=== PATIENT | female | born 1980 | race Two or more races ===

== ENCOUNTER 2025-04-15 18:26 | Emergency (ER) | payer MEDICAID, OTHER ==
[~2025-04-15] VITALS: Ht 154.9 cm; Wt 64.9 kg
--- NOTE | 2025-04-15 18:49 | ED.PDOC ---
History of Present Illness HPI Comments 44 y/o F presents with c/c of generalized rash and itchiness x4 days. No endorsed recent lifestyle changes, new medications, or further pertinent medical history. She also complains of right ear pain and facial swelling, unprovoked, for 1x day. 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 History All Other Systems: Reviewed and Negative (As per HPI) Physical Exam General Appearance: No Apparent Distress, Normal HEENT: Normal ENT Inspection, Pharynx Normal, TMs Normal, Other (AIRWAY INTACT NO SWELLING NO STRIDOR PATIENT TALKING IN FULL SENTENCES) Neck: Full Range of Motion, Non-Tender, Normal, Normal Inspection Respiratory: Chest Non-Tender, Lungs Clear, No Accessory Muscle Use, No Respiratory Distress, Normal Breath Sounds Cardiovascular: No Edema, No JVD, No Murmur, No Gallop, Normal Peripheral Pulses, Regular Rate/Rhythm Breast Exam: Deferred Gastrointestinal: No Organomegaly, Non Tender, No Pulsatile Mass, Normal Bowel Sounds, Soft Genitalia: Deferred Pelvic: Deferred Rectal: Deferred Extremities: No calf tenderness, Normal capillary refill, Normal inspection, Normal range of motion, Non-tender, No pedal edema Musculoskeletal : Apperance: Normal Neurologic: Alert, matchbook assembler II-XII nml as Tested, No Motor Deficits, Normal Affect, Normal Mood, No Sensory Deficits Cerebellar Function: Normal Reflexes: Normal Skin: Dry, Normal Color, Rash (DIFFUSE URTICARIA ARMS NECK AND CHEST BILATERAL EARS ERYTHEMIC AND EDEMATOUS NO NOTED EXCORIATIONS OR OPEN LESIONS), Warm Lymphatic: No Adenopathy Was a procedure done? Was a procedure done?: No Differential Dx Considerations may include: anaphylaxis, contact dermatitis, cellulitis, angioedema, among others X-Ray, Labs, Meds, VS Vital Signs Date Time Temp Pulse Resp B/P (MAP) Pulse Ox O2 Delivery O2 Flow Rate FiO2 04/15/25 21:24 97.5 97 20 174/106 (128) 100 97.5 04/15/25 21:24 97 20 100 Room Air 04/15/25 18:28 97.8 90 15 148/90 98 97.8 Lab Test 04/15/25 19:42 Range/Units White Blood Count 8.4 4.4-10.8 10^3/uL Red Blood Count 5.45 H 4.0-5.20 10^6/uL Hemoglobin 14.0 12.2-16.2 g/dL Hematocrit 41.5 36.0-46.0 % Mean Corpuscular Volume 76.3 L 80.0-100.0 fL Mean Corpuscular Hemoglobin 25.7 L 28.0-32.0 pg Mean Corpuscular Hemoglobin Concent 33.7 32.0-36.0 g/dL Red Cell Distribution Width 13.1 11.8-14.3 % Platelet Count 197 140-450 10^3/uL Mean Platelet Volume 9.5 6.9-10.8 fL Neutrophils (%) (Auto) 63.9 37.0-80.0 % Lymphocytes (%) (Auto) 25.8 10.0-50.0 % Monocytes (%) (Auto) 6.5 0.0-12.0 % Eosinophils (%) (Auto) 3.5 0.0-7.0 % Basophils (%) (Auto) 0.3 0.0-2.0 % Neutrophils # (Auto) 5.4 1.6-8.6 10 ^3/uL Lymphocytes # (Auto) 2.2 0.4-5.4 10 ^3/uL Monocytes # (Auto) 0.5 0-1.3 10 ^3/uL Eosinophils # (Auto) 0.3 0-0.8 10 ^3/uL Basophils # (Auto) 0 0-0.2 10 ^3/uL Nucleated Red Blood Cells 0.0 % Erythrocyte Sedimentation Rate 10 0-20 mm/hr Sodium Level 138 136-145 mmol/L Potassium Level 3.4 L 3.5-5.1 mmol/L Chloride Level 104 98-107 mmol/L Carbon Dioxide Level 26 20-31 mmol/L Anion Gap 8 5-15 Blood Urea Nitrogen 8 L 9-23 mg/dL Creatinine 0.71 0.550-1.02 mg/dL Glomerular Filtration Rate Calc 107 >90 mL/min BUN/Creatinine Ratio 11.3 10.0-20.0 Serum Glucose 104 74-106 mg/dL Calcium Level 9.5 8.7-10.4 mg/dL Total Bilirubin 0.4 0.2-1.0 mg/dL Aspartate Amino Transferase (AST) 18 13-40 U/L Alanine Aminotransferase (ALT) 9 7-40 U/L Alkaline Phosphatase 39 L 46-116 U/L Total Protein 7.7 5.7-8.2 g/dL Albumin 4.5 3.2-4.8 g/dL Current Medications Medications (Trade) Dose Ordered Sig/Lamin Route Start Time Stop Time Status Last Admin Sodium Chloride 1,000 ml @ 1,000 mls/hr Q1H ONCE IV 04/15/25 19:45 04/15/25 20:44 DC 04/15/25 19:45 Methylprednisolone Sodium Succinate (Solu Medrol) 125 mg ONCE ONCE IV 04/15/25 19:45 04/15/25 19:46 DC 04/15/25 22:05 Famotidine (Pepcid Injection) 20 mg ONCE ONCE IV 04/15/25 19:45 04/15/25 19:46 DC 04/15/25 22:05 Diphenhydramine HCl (Benadryl Injection) 25 mg ONCE ONCE IV 04/15/25 19:45 04/15/25 19:46 DC 04/15/25 22:05 X-Ray, Labs, Meds, VS Comment Patient given Solu-Medrol 125 IV push Pepcid 20 mg IV push and Benadryl 25 mg IV push along with normal saline 1000 mL bolus. Moderate improvement in swelling and ears and urticarial rash patient requesting discharge at this time. We will script trial of Medrol Dosepak and famotidine. Advised to call her PCP 1st thing in the morning schedule follow up. ER return precautions given patient indicates understanding and agrees with discharge plan of care. Time of 1ST Reevaluation: 18:33 Reevaluation 1ST: Unchanged Time of 2ND Reevaluation: 22:08 Reevaluation 2ND: Improved Patient Education/Counseling: Diagnosis, Treatment, Need For Follow Up Family Education/Counseling: No Family Present SEPSIS Sepsis Screen Date sepsis recognized/suspect: Apr 15, 2025 Time Sepsis recognized/suspect: 1829 Recent Procedure: No On Antibiotic Therapy: No Respiratory Rate >20: No Heart Rate >90: No Temp<36 C (96.8 F) or >38.3 C: No SBP <90 or MAP <65 mmHG: No New Acute Mental Status Change: No Is the patient on CPAP, BIPAP,: No Physician Orders Urinalysis (04/15/25 19:33) Vital Signs Date Time Temp Pulse Resp B/P (MAP) Pulse Ox O2 Delivery O2 Flow Rate FiO2 04/15/25 21:24 97.5 97 20 174/106 (128) 100 97.5 04/15/25 21:24 97 20 100 Room Air 04/15/25 18:28 97.8 90 15 148/90 98 97.8 Laboratory Tests Test 04/15/25 19:42 White Blood Count 8.4 10^3/uL (4.4-10.8) Medications Medications Dose Ordered Sig/Lamin Route Start Time Stop Time Status Last Admin Dose Admin Diphenhydramine HCl 25 mg ONCE ONCE IV 04/15/25 19:45 04/15/25 19:46 DC 04/15/25 22:05 Famotidine 20 mg ONCE ONCE IV 04/15/25 19:45 04/15/25 19:46 DC 04/15/25 22:05 Methylprednisolone Sodium Succinate 125 mg ONCE ONCE IV 04/15/25 19:45 04/15/25 19:46 DC 04/15/25 22:05 Sodium Chloride 1,000 ml @ 1,000 mls/hr Q1H ONCE IV 04/15/25 19:45 04/15/25 20:44 DC 04/15/25 19:45 Departure 1 Departure Time of Disposition: 22:06 Impression: Primary Impression: Allergic reaction Qualified Codes: T78.40XA - Allergy, unspecified, initial encounter Disposition: HOME / SELF CARE / HOMELESS Condition: Stable e-Prescriptions Famotidine (Famotidine) 20 Mg Tab 20 MG PO BID for 7 Days, #14 TAB Prov: ELEAZAR ADAM DIRECTOR OF [employer]ESSIONAL SERVICES 04/15/25 Methylprednisolone (Medrol Dosepak) 4 Mg Chris 4 MG PO UD for 6 Days, #21 TAB UAD Prov: ELEAZAR ADAM [employer] 04/15/25 Discharged With: Self Critical Care Note Critical Care Time?: No Stability Stability form required: No Heart Score Heart Score: Heart Score Response (Comments) Value History N/A 0 EKG N/A 0 Age N/A 0 Risk Factors N/A 0 Troponin N/A 0 Total 0 I personally scribed for ER ([email or web address]) on 04/15/25 at 18:49. Electronically submitted by Romeo Flores [email or web address]). ER Apr 15, 2025 18:49 ELEAZAR ADAM [facility] Apr 15, 2025 19:38
[2025-04-15] MEDS: SODIUM CHLORIDE 0.9% 1,000 ML IV ONE (19:45)
[2025-04-15 19:59] LABS: Hemoglobin 14.0 g/dL (12.2-16.2)
[2025-04-15 20:01] LABS: Hematocrit 41.5 % (36.0-46.0); Mean Corpuscular Hemoglobin 25.7 pg (28.0-32.0); Mean Corpuscular Volume 76.3 fL (80.0-100.0); Nucleated Red Blood Cells % 0.0 %
[2025-04-15 20:06] LABS: Albumin 4.5 g/dL (3.2-4.8); Anion Gap 8 (5-15); BUN/Creatinine Ratio 11.3 (10.0-20.0); Calcium 9.5 mg/dL (8.7-10.4); Carbon Dioxide 26 mmol/L (20-31); Chloride 104 mmol/L (98-107); Glucose 104 mg/dL (74-106); Sodium 138 mmol/L (136-145); Total Protein 7.7 g/dL (5.7-8.2)
[2025-04-15 20:07] LABS: Bilirubin, Total 0.4 mg/dL (0.2-1.0)
[2025-04-15 20:08] LABS: Alanine Aminotransferase 9 U/L (7-40); Alkaline Phosphatase 39 U/L (46-116); Blood Urea Nitrogen 8 mg/dL (9-23); Potassium 3.4 mmol/L (3.5-5.1)
[2025-04-15 21:24] VITALS: BP 174/106; PULSE 97; RESP 20; TEMP 97.5; O2SAT 100
[2025-04-15] MEDS: methylPREDNISolone SOD SUCC 125 MG/2 ML VL IV ONE (22:05)
[2025-04-15] MEDS: diphenhydrAMINE HCL 50 MG/1 ML VL IV ONE (22:05)
[2025-04-15] MEDS: FAMOTIDINE (10MG/ML) 2ML VL IV ONE (22:05)
[2025-04-15] MEDS ORDERED: FAMO-12 PO (22:07)
[2025-04-15] MEDS ORDERED: METH4PAK PO (22:07)
== END 2025-04-15 22:09 | disposition home or self-care (01) ==
LOC: ER 18:34
DX: L50.9 Urticaria, unspecified (principal); T78.40XA Allergy, unspecified, initial encounter; X58.XXXA Exposure to other specified factors, initial encounter
CPT/HCPCS: 36415; 80053; 85025; 85652; 96361; 96374; 96375; 99284; J1200; J2919; J3490; J7030

== ENCOUNTER 2025-04-18 20:05 | Emergency (ER) | payer OTHER ==
[~2025-04-18] VITALS: Ht 160 cm; Wt 63.6 kg
[~2025-04-18 20:05] MED LIST: FAMO-12 PO; METH4PAK PO
[2025-04-18 20:29] VITALS: BP 130/86; PULSE 86; RESP 100; TEMP 99.7; O2SAT 99
--- NOTE | 2025-04-18 22:06 | ED.PDOC ---
HPI Allergic reaction HPI Comments 44-year-old female presents to ER with complaints of rash x 1.5 weeks. Patient reports that she has been experiencing a diffuse red itchy rash to bilateral arms, bilateral legs and face x 1.5 weeks. Patient reports that she was seen and discharged in ER here for her symptoms three days ago and notes that her symptoms have since gotten worse prompting her to come to ER for further evaluation. Patient reports that she has been taking her prescribed steroids and famotidine without relief. Patient presents to ER ambulatory on arrival, with steady gait, in mild distress with a fine erythematous maculopapular rash noted to bilateral upper/lower extremities and neck/face. Denies fever, body ac hes, chills, known allergies/known triggers of rash, shortness of breath, chest pain or any further symptoms/complaints Chief Complaint: Rash Time Seen by MD: 20:16 Primary Care Provider: UNKNOWN Reviewed Notes: Nurses Notes, Medications, Allergies Allergies: Coded Allergies: NO KNOWN ALLERGIES (Unverified , 04/15/25) Home Meds Active Scripts Famotidine (Famotidine) 20 Mg Tab, 20 MG PO BID for 7 Days, #14 TAB Prov:ELEAZAR ADAM [facility] 04/15/25 Methylprednisolone (Medrol Dosepak) 4 Mg Chris, 4 MG PO UD for 6 Days, #21 TAB UAD Prov:ELEAZAR ADAM [facility] 04/15/25 Information Source: Patient Mode of Arrival: Ambulatory Past Medical History PAST MEDICAL HISTORY: Denies Surgical History: Denies all surgeries 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 G History Family History Family History: Unknown Social History Smoker: Non-Smoker Alcohol: Denies ETOH Use Drugs: Denies Drug Use Lives In: Home Constitutional: denies: chills, diaphoresis, fatigue, fever, malaise, sweats, weakness, others EENTM: reports: others (As stated in HPI) Respiratory: denies: cough, hemoptysis, orthopnea, SOB at rest, shortness of breath, SOB with excertion, stridor, wheezing, others Cardiovascular: denies: chest pain, dizzy spells, diaphoresis, Dyspnea on exertion, edema, irregular heart beat, left arm pain, lightheadedness, palpitations, PND, syncope, others Genitourinary: denies: abnormal vagina bleeding, burning, dyspareunia, dysuria, flank pain, frequency, hematuria, incontinence, pain, , vagina discharge, urgency, others Neurological: denies: dizziness, fainting, headache, left sided numbness, left sided weakness, numbness, paresthesia, pre-existing deficit, right sided numbness, right sided weakness, seizure, speech problems, tingling, tremors, we akness, others Musculoskeletal: denies: back pain, gout, joint pain, joint swelling, muscle pain, muscle stiffness, neck pain, others Integumetry: reports: others (As stated in HPI) Allergic/Immunocompromised: reports: others (As stated in HPI) Hematologic/Lymphatic: denies: anemia, blood clots, easy bleeding, easy bruising, swollen glands, others Endocrine: denies: excessive hunger, excessive sweating, excessive thirst, excessive urination, flushing, intolerance to cold, intolerance to heat, unexplained weight gain, unexplained weight loss, others Psychiatric: denies: anxiety, bipolar disorder, depression, hopeless, panic disorder, schizophrenia, sleepless, suicidal, others Physical Exam General Appearance: Mild Distress HEENT: Normal ENT Inspection, PERRL/EOMI, Pharynx Normal, TMs Normal Neck: Full Range of Motion, Non-Tender, Normal Respiratory: Chest Non-Tender, Lungs Clear, No Accessory Muscle Use, No Respiratory Distress, Normal Breath Sounds Cardiovascular: No Murmur, No Gallop, Regular Rate/Rhythm Breast Exam: Deferred Gastrointestinal: Non Tender, No Pulsatile Mass, Soft Genitalia: Deferred Pelvic: Deferred Rectal: Deferred Extremities: Normal capillary refill, Normal range of motion Neurologic: Alert, No Motor Deficits, Normal Affect, Normal Mood, No Sensory Deficits Cerebellar Function: Normal Reflexes: Normal Skin: Dry, Warm, Other (Fine erythematous maculopapular rash noted to bilateral upper/lower extremities and neck/face) Lymphatic: No Adenopathy Was a procedure done? Was a procedure done?: No Sedation Sedation?: No Differential diagnosis (all) Differential Diagnosis: Anaphylaxis, Angioedema, Drug Reaction, Hypotension X-Ray, Labs, Meds, VS Vital Signs Date Time Temp Pulse Resp B/P (MAP) Pulse Ox O2 Delivery O2 Flow Rate FiO2 04/18/25 20:29 99.7 86 100 130/86 99 99.7 04/18/25 20:21 Room Air Lab Test 04/18/25 23:00 04/18/25 22:09 Range/Units Lactic Acid Level 1.0 0.4-2.0 mmol/L White Blood Count 15.3 #H 4.4-10.8 10^3/uL Red Blood Count 6.04 H 4.0-5.20 10^6/uL Hemoglobin 15.5 12.2-16.2 g/dL Hematocrit 46.4 #H 36.0-46.0 % Mean Corpuscular Volume 76.9 L 80.0-100.0 fL Mean Corpuscular Hemoglobin 25.6 L 28.0-32.0 pg Mean Corpuscular Hemoglobin Concent 33.3 32.0-36.0 g/dL Red Cell Distribution Width 13.4 11.8-14.3 % Platelet Count 230 140-450 10^3/uL Mean Platelet Volume 9.5 6.9-10.8 fL Neutrophils (%) (Auto) 71.5 37.0-80.0 % Lymphocytes (%) (Auto) 17.1 10.0-50.0 % Monocytes (%) (Auto) 6.3 0.0-12.0 % Eosinophils (%) (Auto) 4.6 0.0-7.0 % Basophils (%) (Auto) 0.5 0.0-2.0 % Neutrophils # (Auto) 11.0 H 1.6-8.6 10 ^3/uL Lymphocytes # (Auto) 2.6 0.4-5.4 10 ^3/uL Monocytes # (Auto) 1.0 0-1.3 10 ^3/uL Eosinophils # (Auto) 0.7 0-0.8 10 ^3/uL Basophils # (Auto) 0.1 0-0.2 10 ^3/uL Nucleated Red Blood Cells 0.3 % Erythrocyte Sedimentation Rate 3 0-20 mm/hr Sodium Level 136 136-145 mmol/L Potassium Level 3.7 3.5-5.1 mmol/L Chloride Level 103 98-107 mmol/L Carbon Dioxide Level 25 20-31 mmol/L Anion Gap 8 5-15 Blood Urea Nitrogen 6 L 9-23 mg/dL Creatinine 0.83 0.550-1.02 mg/dL Glomerular Filtration Rate Calc 89 >90 mL/min BUN/Creatinine Ratio 7.2 L 10.0-20.0 Serum Glucose 87 74-106 mg/dL Calcium Level 9.6 8.7-10.4 mg/dL Total Bilirubin 0.4 0.2-1.0 mg/dL Aspartate Amino Transferase (AST) 14 13-40 U/L Alanine Aminotransferase (ALT) 11 7-40 U/L Alkaline Phosphatase 43 L 46-116 U/L Total Protein 8.3 H 5.7-8.2 g/dL Albumin 4.9 H 3.2-4.8 g/dL Current Medications Medications (Trade) Dose Ordered Sig/Lamin Route Start Time Stop Time Status Last Admin Methylprednisolone Sodium Succinate (Solu Medrol) 125 mg ONCE ONCE IV 04/18/25 22:00 04/18/25 22:01 DC 04/18/25 22:39 Famotidine (Pepcid Injection) 20 mg ONCE ONCE IV 04/18/25 22:00 04/18/25 22:01 DC 04/18/25 22:39 Diphenhydramine HCl (Benadryl Injection) 25 mg ONCE ONCE IM 04/18/25 22:00 04/18/25 22:01 DC 04/18/25 22:38 CBC reviewed- + leukocytosis, + neutrophilia CMP reviewed without any significant abnormalities ESR ordered Lactic acid reviewed - normal Blood cultures ordered Urinalysis ordered Hep-Lock IV ordered Solu-Medrol 125 mg IV ordered Benadryl 25 mg IV ordered Famotidine 25 mg IV ordered Rocephin 1 g IV ordered Previous chart visit reviewed Patient admitted to hospitalist for recurrent urticaria and continued need for IV treatment/workup for recurrent urticaria Time of 1ST Reevaluation: 21:44 Reevaluation 1ST: N/A Patient Education/Counseling: Diagnosis, Treatment, Prognosis, Need For Follow Up Family Education/Counseling: No Family Present SEPSIS Sepsis Screen Date sepsis recognized/suspect: Apr 18, 2025 Time Sepsis recognized/suspect: 2032 Recent Procedure: No On Antibiotic Therapy: No Respiratory Rate >20: No Heart Rate >90: No Temp<36 C (96.8 F) or >38.3 C: No SBP <90 or MAP <65 mmHG: No New Acute Mental Status Change: No Is the patient on CPAP, BIPAP,: No Physician Orders Urinalysis (04/18/25 21:52) Heplock Iv (04/18/25 ) Blood Culture (04/18/25 22:54) Vital Signs Date Time Temp Pulse Resp B/P (MAP) Pulse Ox O2 Delivery O2 Flow Rate FiO2 04/18/25 20:29 99.7 86 100 130/86 99 99.7 04/18/25 20:21 Room Air Laboratory Tests Test 04/18/25 22:09 04/18/25 23:00 White Blood Count 15.3 10^3/uL (4.4-10.8) #H Lactic Acid Level 1.0 mmol/L (0.4-2.0) Medications Medications Dose Ordered Sig/Lamin Route Start Time Stop Time Status Last Admin Dose Admin Diphenhydramine HCl 25 mg ONCE ONCE IM 04/18/25 22:00 04/18/25 22:01 DC 04/18/25 22:38 Famotidine 20 mg ONCE ONCE IV 04/18/25 22:00 04/18/25 22:01 DC 04/18/25 22:39 Methylprednisolone Sodium Succinate 125 mg ONCE ONCE IV 04/18/25 22:00 04/18/25 22:01 DC 04/18/25 22:39 Departure 1 Departure Time of Disposition: 22:03 Impression: Primary Impression: Recurrent urticaria Additional Impression: Leukocytosis Qualified Codes: D72.829 - Elevated white blood cell count, unspecified Disposition: ADMITTED INPATIENT Condition: Stable Critical Care Note Critical Care Time?: No Stability Stability form required: No Heart Score Heart Score: Heart Score Response (Comments) Value History N/A 0 EKG N/A 0 Age N/A 0 Risk Factors N/A 0 Troponin N/A 0 Total 0 ZULEYKA FOWLER Apr 18, 2025 22:06
[2025-04-18 22:24] LABS: Hematocrit 46.4 % (36.0-46.0); Hemoglobin 15.5 g/dL (12.2-16.2); Mean Corpuscular Hemoglobin 25.6 pg (28.0-32.0); Mean Corpuscular Volume 76.9 fL (80.0-100.0); Nucleated Red Blood Cells % 0.3 %
[2025-04-18] MEDS: diphenhydrAMINE HCL 50 MG/1 ML VL IM ONE (22:38)
[2025-04-18 22:39] LABS: Alanine Aminotransferase 11 U/L (7-40); Anion Gap 8 (5-15); BUN/Creatinine Ratio 7.2 (10.0-20.0); Bilirubin, Total 0.4 mg/dL (0.2-1.0); Calcium 9.6 mg/dL (8.7-10.4); Carbon Dioxide 25 mmol/L (20-31); Chloride 103 mmol/L (98-107); Glucose 87 mg/dL (74-106); Potassium 3.7 mmol/L (3.5-5.1); Sodium 136 mmol/L (136-145)
[2025-04-18] MEDS: methylPREDNISolone SOD SUCC 125 MG/2 ML VL IV ONE (22:39)
[2025-04-18] MEDS: FAMOTIDINE (10MG/ML) 2ML VL IV ONE (22:39)
[2025-04-18 22:40] LABS: Albumin 4.9 g/dL (3.2-4.8); Alkaline Phosphatase 43 U/L (46-116); Blood Urea Nitrogen 6 mg/dL (9-23); Total Protein 8.3 g/dL (5.7-8.2)
--- NOTE | 2025-04-18 23:50 | DVHHPRES ---
History of Present Illness Resident Creating Document: ARIADNE HART RESIDENT History of Present Illness Patient is a -year-old male with past medical history of presented to [facility] ED with complaint of Review of Systems Review of Systems Eyes: No Pain, No Vision change, No Conjunctivae inflammation, No Eyelid inflammation, No Other, No Redness ENT: No Ear pain, No Ear discharge, No Nose pain, No Nose discharge, No Nose congestion, No Mouth pain, No Mouth swelling, No Throat pain, No Throat swelling, No Other Cardiovascular: No Chest Pain, No Palpitations, No Orthopnea, No Paroxysmal No Dyspnea, No Edema, No Lt Headedness, No Other Respiratory: No Cough, No Dry, No Shortness of breath, No SOB with exertion, No Wheezing, No Hemoptysis, No Pleuritic Pain, No Sputum, No Other Gastrointestinal: No Nausea, No Vomiting, No Abdominal Pain, No Diarrhea, No Constipation, No Melena, No Hematochezia, No Other Genitourinary: No Dysuria, No Frequency, No Incontinence, No Hematuria, No Retention, No Other Musculoskeletal: No other, No neck pain, No shoulder pain, No arm pain, No back pain, No hand pain, No leg pain, No foot pain Skin: No Rash, No Lesions, No Jaundice, No Bruising, No Other Allergies: Coded Allergies: NO KNOWN ALLERGIES (Unverified , 04/15/25) Exam Vital Signs Vital Signs Date Time Temp Pulse Resp B/P (MAP) Pulse Ox O2 Delivery O2 Flow Rate FiO2 04/18/25 20:29 99.7 86 100 130/86 99 99.7 Exam General Appearance: Cooperative. Well developed. Well nourished. NAD Head Exam: Normal inspection Neck Exam: Normal inspection. Non-tender. Normal alignment Pulmonary/Respiratory: Chest non-tender. Clear bilateral breath sounds, no crackles, no wheezing. Cardiovascular/Chest: Regular rate and rhythm. No murmurs. No JVD. Peripheral Pulses: 2+ Radial (R). 2+ Radial (L). 2+ Pedal (R). 2+ Pedal (L) Abdominal Exam: Normal bowel sounds. Soft. normal abdomen, no visible veins, Nontender. No hepatospenomegaly. No masses Ankle Exam: Negative ankle edema Lower extremities: Negative lower extremity edema Neuro/Mental Status: A&O x4. Coherent. Thoughts/Psych: Normal thought pattern. Appropriate mood and affect. Good judgement and insight Skin Exam: Normal inspection. Normal color. Warm. Dry Labs/Xrays Labs Test 04/18/25 22:09 Range/Units White Blood Count 15.3 #H 4.4-10.8 10^3/uL Red Blood Count 6.04 H 4.0-5.20 10^6/uL Hemoglobin 15.5 12.2-16.2 g/dL Hematocrit 46.4 #H 36.0-46.0 % Mean Corpuscular Volume 76.9 L 80.0-100.0 fL Mean Corpuscular Hemoglobin 25.6 L 28.0-32.0 pg Mean Corpuscular Hemoglobin Concent 33.3 32.0-36.0 g/dL Red Cell Distribution Width 13.4 11.8-14.3 % Platelet Count 230 140-450 10^3/uL Mean Platelet Volume 9.5 6.9-10.8 fL Neutrophils (%) (Auto) 71.5 37.0-80.0 % Lymphocytes (%) (Auto) 17.1 10.0-50.0 % Monocytes (%) (Auto) 6.3 0.0-12.0 % Eosinophils (%) (Auto) 4.6 0.0-7.0 % Basophils (%) (Auto) 0.5 0.0-2.0 % Neutrophils # (Auto) 11.0 H 1.6-8.6 10 ^3/uL Lymphocytes # (Auto) 2.6 0.4-5.4 10 ^3/uL Monocytes # (Auto) 1.0 0-1.3 10 ^3/uL Eosinophils # (Auto) 0.7 0-0.8 10 ^3/uL Basophils # (Auto) 0.1 0-0.2 10 ^3/uL Nucleated Red Blood Cells 0.3 % Erythrocyte Sedimentation Rate 3 0-20 mm/hr Sodium Level 136 136-145 mmol/L Potassium Level 3.7 3.5-5.1 mmol/L Chloride Level 103 98-107 mmol/L Carbon Dioxide Level 25 20-31 mmol/L Anion Gap 8 5-15 Blood Urea Nitrogen 6 L 9-23 mg/dL Creatinine 0.83 0.550-1.02 mg/dL Glomerular Filtration Rate Calc 89 >90 mL/min BUN/Creatinine Ratio 7.2 L 10.0-20.0 Serum Glucose 87 74-106 mg/dL Calcium Level 9.6 8.7-10.4 mg/dL Total Bilirubin 0.4 0.2-1.0 mg/dL Aspartate Amino Transferase (AST) 14 13-40 U/L Alanine Aminotransferase (ALT) 11 7-40 U/L Alkaline Phosphatase 43 L 46-116 U/L Total Protein 8.3 H 5.7-8.2 g/dL Albumin 4.9 H 3.2-4.8 g/dL SEPSIS Sepsis Screen Date sepsis recognized/suspect: Apr 18, 2025 Time Sepsis recognized/suspect: 2032 Recent Procedure: No On Antibiotic Therapy: No Respiratory Rate >20: No Heart Rate >90: No Temp<36 C (96.8 F) or >38.3 C: No SBP <90 or MAP <65 mmHG: No New Acute Mental Status Change: No Is the patient on CPAP, BIPAP,: No Physician Orders Urinalysis (04/18/25 21:52) Heplock Iv (04/18/25 ) Lactic Acid W/ Reflex Order (04/18/25 22:54) Blood Culture (04/18/25 22:54) Admit (04/18/25 23:47) Allergies (04/18/25 23:47) Code Status (04/18/25 23:47) Stat Ekg For Chest Pain (04/18/25 23:47) Notify Md Of Changes From Base (04/18/25 23:47) Scheduler Maintenance For 24 Hours (04/18/25 23:47) Emergency Dysrhythmia Protocol (04/18/25 23:47) Rhythm Strips Once Every Shift (04/18/25 23:47) Vital Signs Date Time Temp Pulse Resp B/P (MAP) Pulse Ox O2 Delivery O2 Flow Rate FiO2 04/18/25 20:29 99.7 86 100 130/86 99 99.7 Laboratory Tests Test 04/18/25 22:09 White Blood Count 15.3 10^3/uL (4.4-10.8) #H Medications Medications Dose Ordered Sig/Lamin Route Start Time Stop Time Status Last Admin Dose Admin Diphenhydramine HCl 25 mg ONCE ONCE IM 04/18/25 22:00 04/18/25 22:01 DC 04/18/25 22:38 25 MG Famotidine 20 mg ONCE ONCE IV 04/18/25 22:00 04/18/25 22:01 DC 04/18/25 22:39 20 MG Methylprednisolone Sodium Succinate 125 mg ONCE ONCE IV 04/18/25 22:00 04/18/25 22:01 DC 04/18/25 22:39 125 MG Assessment/Plan Assessment/Plan Sepsis Diet: PUD prophylaxis: protonix 40mg DVT prophylaxis: Lovenox 40mg Goals of care: Full code, discussed for >30 minutes on 04/18/25 Plan discussed with patient Plan discussed with Dr. Ramírez My Orders Orders - ARIADNE HART Procedure Category Date Status Time Admit ADMIT 04/18/25 Verified 23:47 Allergies [facility] 04/18/25 Verified 23:47 Code Status CODE 04/18/25 Verified 23:47 Stat Ekg For Chest [facility] 04/18/25 Verified Pain 23:47 Notify Md Of Changes [facility] 04/18/25 Verified From Base 23:47 Scheduler Maintenance For [facility] 04/18/25 Verified 24 Hours 23:47 Emergency Dysrhythmia [facility] 04/18/25 Verified Protocol 23:47 Rhythm Strips Once [facility] 04/18/25 Verified Every Shift 23:47 Date of Service: Apr 18, 2025 Billing Provider: SANTOS RAMÍREZ MD Common Visit Codes: [id number] INP/OBS CARE (HIGH) Secondary Visit Codes: [id number] CARE PLAN 30 MINUTES ARIADNE HART Apr 18, 2025 23:50
== END 2025-04-19 00:46 | disposition left against medical advice (07) ==
LOC: ER 20:05 → UNDOADMIN 23:47 → OVERFLOW 23:47 → ER 04-19 00:46
DX: L50.9 Urticaria, unspecified (principal); D72.829 Elevated white blood cell count, unspecified
CPT/HCPCS: 36415; 80053; 83605; 85025; 85652; 87040; 96372; 96374; 96375; 99284; J1200; J2919; J3490

== ENCOUNTER 2025-04-21 10:00 | Inpatient (IN) | payer OTHER ==
[~2025-04-21] VITALS: Ht 154.9 cm; Wt 60.2 kg
[2025-04-21] MEDS: methylPREDNISolone SOD SUCC 125 MG/2 ML VL IV ONE (13:17)
[2025-04-21] MEDS: FAMOTIDINE (10MG/ML) 2ML VL IV ONE (13:18)
[2025-04-21] MEDS: diphenhydrAMINE HCL 50 MG/1 ML VL IV ONE (13:18)
[2025-04-21] MEDS: SODIUM CHLORIDE 0.9% 1,000 ML IV ONE (13:21)
[2025-04-21 13:51] LABS: Hemoglobin 15.9 g/dL (12.2-16.2)
[2025-04-21 13:55] LABS: Chloride 101 mmol/L (98-107); Hematocrit 47.4 % (36.0-46.0); Mean Corpuscular Hemoglobin 25.5 pg (28.0-32.0); Mean Corpuscular Volume 76.3 fL (80.0-100.0); Nucleated Red Blood Cells % 0.1 %; Sodium 138 mmol/L (136-145)
[2025-04-21 13:56] LABS: Anion Gap 12 (5-15); Carbon Dioxide 25 mmol/L (20-31); Potassium 3.4 mmol/L (3.5-5.1)
[2025-04-21 13:57] LABS: Calcium 9.9 mg/dL (8.7-10.4)
[2025-04-21 14:01] LABS: BUN/Creatinine Ratio 9.8 (10.0-20.0); Glucose 92 mg/dL (74-106)
[2025-04-21 14:02] LABS: Blood Urea Nitrogen 8 mg/dL (9-23)
--- NOTE | 2025-04-21 14:10 | ED.PDOC ---
HPI Allergic reaction HPI Comments 44-year-old female presents with chief complaint of generalized rash, with associated itchiness. Patient reports on returns to the ED for worsening symptoms falling previous ED visit for same complaint. Patient reports on being treated, during last ED visit, with IV steroids and was discharged with prescription medications. No known history of allergies. She denies having any throat swelling, shortness a breath, further acute symptoms. Chief Complaint: Rash Time Seen by MD: 12:30 Primary Care Provider: UNKNOWN Reviewed Notes: Nurses Notes, Medications, Allergies Allergies: Coded Allergies: NO KNOWN ALLERGIES (Unverified , 04/15/25) Home Meds Active Scripts Famotidine (Famotidine) 20 Mg Tab, 20 MG PO BID for 7 Days, #14 TAB Prov:ELEAZAR ADAM [facility] 04/15/25 Methylprednisolone (Medrol Dosepak) 4 Mg Chris, 4 MG PO UD for 6 Days, #21 TAB UAD Prov:KIAELEAZAR Weathers [facility] 04/15/25 Information Source: Patient Mode of Arrival: Ambulatory Severity: Moderate Rash: Moderate Past Medical History PAST MEDICAL HISTORY: Denies Surgical History: Denies all surgeries COMBER SETTER History: No Pertinent COMBER SETTER History Family History Family History: Unknown Social History Smoker: Non-Smoker Alcohol: Denies ETOH Use Drugs: Denies Drug Use Lives In: Home All Other Systems: Reviewed and Negative (Comprehensive review of systems are negative unless otherwise stated in HPI) Physical Exam General Appearance: No Apparent Distress, Normal HEENT: Normal ENT Inspection, Pharynx Normal, TMs Normal Neck: Full Range of Motion, Non-Tender, Normal, Normal Inspection Respiratory: Chest Non-Tender, Lungs Clear, No Accessory Muscle Use, No Respiratory Distress, Normal Breath Sounds Cardiovascular: No Edema, No JVD, No Murmur, No Gallop, Normal Peripheral Pulses, Regular Rate/Rhythm Breast Exam: Deferred Gastrointestinal: No Organomegaly, Non Tender, No Pulsatile Mass, Normal Bowel Sounds, Soft Genitalia: Deferred Pelvic: Deferred Rectal: Deferred Extremities: No calf tenderness, Normal capillary refill, Normal inspection, Normal range of motion, Non-tender, No pedal edema Musculoskeletal : Apperance: Normal Neurologic: Alert, hogshead roller II-XII nml as Tested, No Motor Deficits, Normal Affect, Normal Mood, No Sensory Deficits Cerebellar Function: Normal Reflexes: Normal Skin: Dry, Normal Color, Rash (Diffusely urticaria), Warm Lymphatic: No Adenopathy Was a procedure done? Was a procedure done?: No Differential diagnosis (all) Differential Diagnosis: Anaphylaxis, Angioedema, Contact Dermatitis, Drug Reaction, Urticaria X-Ray, Labs, Meds, VS Vital Signs Date Time Temp Pulse Resp B/P (MAP) Pulse Ox O2 Delivery O2 Flow Rate FiO2 04/21/25 10:04 98.0 94 18 143/98 98 98.0 Lab Test 04/21/25 13:26 Range/Units White Blood Count 19.0 H 4.4-10.8 10^3/uL Red Blood Count 6.21 H 4.0-5.20 10^6/uL Hemoglobin 15.9 12.2-16.2 g/dL Hematocrit 47.4 H 36.0-46.0 % Mean Corpuscular Volume 76.3 L 80.0-100.0 fL Mean Corpuscular Hemoglobin 25.5 L 28.0-32.0 pg Mean Corpuscular Hemoglobin Concent 33.4 32.0-36.0 g/dL Red Cell Distribution Width 13.2 11.8-14.3 % Platelet Count 293 140-450 10^3/uL Mean Platelet Volume 9.1 6.9-10.8 fL Neutrophils (%) (Auto) 67.5 37.0-80.0 % Lymphocytes (%) (Auto) 21.1 10.0-50.0 % Monocytes (%) (Auto) 6.5 0.0-12.0 % Eosinophils (%) (Auto) 4.6 0.0-7.0 % Basophils (%) (Auto) 0.3 0.0-2.0 % Neutrophils # (Auto) 12.8 H 1.6-8.6 10 ^3/uL Lymphocytes # (Auto) 4.0 0.4-5.4 10 ^3/uL Monocytes # (Auto) 1.2 0-1.3 10 ^3/uL Eosinophils # (Auto) 0.9 H 0-0.8 10 ^3/uL Basophils # (Auto) 0.1 0-0.2 10 ^3/uL Nucleated Red Blood Cells 0.1 % Sodium Level 138 136-145 mmol/L Potassium Level 3.4 L 3.5-5.1 mmol/L Chloride Level 101 98-107 mmol/L Carbon Dioxide Level 25 20-31 mmol/L Anion Gap 12 5-15 Blood Urea Nitrogen 8 L 9-23 mg/dL Creatinine 0.82 0.550-1.02 mg/dL Glomerular Filtration Rate Calc 90 >90 mL/min BUN/Creatinine Ratio 9.8 L 10.0-20.0 Serum Glucose 92 74-106 mg/dL Calcium Level 9.9 8.7-10.4 mg/dL Current Medications Medications (Trade) Dose Ordered Sig/Lamin Route Start Time Stop Time Status Last Admin Sodium Chloride 1,000 ml @ 1,000 mls/hr Q1H ONCE IV 04/21/25 12:45 04/21/25 13:44 DC 04/21/25 13:21 Methylprednisolone Sodium Succinate (Solu Medrol) 62.5 mg ONCE ONCE IV 04/21/25 12:45 04/21/25 12:49 DC 04/21/25 13:17 Diphenhydramine HCl (Benadryl Injection) 25 mg ONCE ONCE IV 04/21/25 12:45 04/21/25 12:49 DC 04/21/25 13:18 Famotidine (Pepcid Injection) 20 mg ONCE ONCE IV 04/21/25 12:45 04/21/25 12:49 DC 04/21/25 13:18 Time of 1ST Reevaluation: 13:00 Reevaluation 1ST: Unchanged Patient Education/Counseling: Diagnosis, Treatment, Other (Need for hospital admission) Family Education/Counseling: No Family Present Additional Information Additional historians: None Previous medical visits reviewed: None Additional imaging reviewed: None Labs ordered: CBC, BMP, UA, urine test SEPSIS Sepsis Screen Date sepsis recognized/suspect: Apr 21, 2025 Time Sepsis recognized/suspect: 1008 Recent Procedure: No On Antibiotic Therapy: No Respiratory Rate >20: No Heart Rate >90: No Temp<36 C (96.8 F) or >38.3 C: No SBP <90 or MAP <65 mmHG: No New Acute Mental Status Change: No Is the patient on CPAP, BIPAP,: No Physician Orders Urinalysis (04/21/25 12:40) Test, Urine (04/21/25 12:40) Vital Signs Date Time Temp Pulse Resp B/P (MAP) Pulse Ox O2 Delivery O2 Flow Rate FiO2 04/21/25 10:04 98.0 94 18 143/98 98 98.0 Laboratory Tests Test 04/21/25 13:26 White Blood Count 19.0 10^3/uL (4.4-10.8) H Medications Medications Dose Ordered Sig/Lamin Route Start Time Stop Time Status Last Admin Dose Admin Diphenhydramine HCl 25 mg ONCE ONCE IV 04/21/25 12:45 04/21/25 12:49 DC 04/21/25 13:18 Famotidine 20 mg ONCE ONCE IV 04/21/25 12:45 04/21/25 12:49 DC 04/21/25 13:18 Methylprednisolone Sodium Succinate 62.5 mg ONCE ONCE IV 04/21/25 12:45 04/21/25 12:49 DC 04/21/25 13:17 Sodium Chloride 1,000 ml @ 1,000 mls/hr Q1H ONCE IV 04/21/25 12:45 04/21/25 13:44 DC 04/21/25 13:21 Departure 1 Departure Time of Disposition: 14:25 (Patient with worsening allergic reaction vs possible cellulitis. Given multiple presentations with worsening results will admit to the hospital for further workup and expert consultation.) Impression: Primary Impression: Recurrent urticaria Additional Impression: Generalized weakness Disposition: ADMITTED INPATIENT Admit to: Tele Condition: Guarded Critical Care Note Critical Care Time?: No Stability Stability form required: No Heart Score Heart Score: Heart Score Response (Comments) Value History N/A 0 EKG N/A 0 Age N/A 0 Risk Factors N/A 0 Troponin N/A 0 Total 0 I personally scribed for AURY JOY MD ([email or web address]) on 04/21/25 at 14:10. Electronically submitted by Romeo Flores [email or web address]). AURY JOY MD Apr 21, 2025 14:10
[2025-04-21 22:57] LABS: Urine Protein, UAD Negative (Negative)
[2025-04-22] VITALS (7 sets, daily range): BP systolic 104–147; BP diastolic 60–94; PULSE 77–103; RESP 17–20; TEMP 97.9–98.7; O2SAT 96–100
--- NOTE | 2025-04-22 01:01 | DVHHPRES ---
History of Present Illness Resident Creating Document: JUVENTINO SHEPHERD RESIDENT Reason for Visit: progressive generalized pruritic rash with facial swelling History of Present Illness Patient is a 44-year-old female who presents with a one-week history of worsening generalized pruritic rash and facial swelling. * Onset/Timeline * 04/15/2025: First-ever episode of facial swelling, redness, and pruritic rash. Evaluated in the ED, treated (reported IV steroids, antihistamines), and discharged. * 04/18/2025: Returned to the ED with worsening diffuse red, itchy rash involving bilateral legs and face for ~1.5 weeks total; diagnosed as recurrent urticaria/allergic reaction, treated with IV steroids and discharged on: * Methylprednisolone 4 mg pack (Medrol Dose Pack) 6-day taper * Famotidine 20 mg PO BID * 04/21/2025 (today): Returns again with persistent and worsening rash and itching, now involving face, neck, bilateral upper and lower extremities up to thighs. She reports inability to sleep due to severe itching and distress. * Character of Rash * Initially localized to face with swelling and redness. * Now generalized maculopapular, erythematous rash on bilateral dorsal arms, forearms, neck, thighs, and face. * Sparing of palms and (per exam) no mucosal erosions. * Portions of rash appear purpuric/petechial on forearms, with diffuse erythema and swelling elsewhere. * Describes burning and intense itching partially responsive then recurrent after medications. * Response to Prior Treatment * Received IV steroids and Benadryl in ED on prior visits; only transient minimal improvement in redness, with ongoing and worsening pruritus. * Started Medrol Dose Pack and famotidine at home but stopped briefly when she saw skin on her wrist become very red; symptoms worsened with discontinuation. * Currently feels the rash is spreading and not improving, prompting ED return. * Associated Symptoms * Denies fever, chills, body aches, joint pains, chest pain, shortness of breath, cough, wheezing, abdominal pain, nausea, vomiting, diarrhea, lightheadedness, or syncope. * Reports facial swelling and burning, but no tongue swelling, no sensation of throat closing, and no respiratory distress. * No GI cramping or systemic symptoms suggestive of anaphylaxis or serum sickness at this time. * Exposures / Triggers * Denies any new foods, medications (other than ED prescriptions), detergen ts, soaps, cosmetics, or pets. * Denies insect bite, sting, recent outdoor exposure, travel outside the [place] or occupational chemical/dust exposure. * No recent vaccinations within last 10 days. * No prior history of similar rashes. * Past Episodes / History * This is the first lifetime episode of such rash and swelling. * No known history of urticaria, eczema, psoriasis, autoimmune disease, or thyroid disease. * Patient Understanding & Counseling * Patient is anxious and uncomfortable due to rash and itching. * I explained that our primary goal is to calm the rash, reduce the redness and itching, and allow the skin to heal step by step to relieve her discomfort. She verbalized understanding and agreed to admission for further IV therapy, monitoring, and evaluation. Past Medical History * No known chronic medical conditions reported (no known HTN, DM, CKD, chronic liver disease, thyroid disease, or autoimmune disease). * No prior dermatologic diagnoses (eczema, psoriasis, chronic urticaria) reported. Past Surgical History * Denies prior surgeries (none reported). Family History * Niece with allergies. * Otherwise negative for asthma, urticaria, eczema, lupus, thyroid disease, or other autoimmune conditions, to the best of patients knowledge Past Social History * Tobacco: Never smoker. * Alcohol: Rare, social use (12 times per year). * Illicit drugs: Denies. * Occupation: Not specified; denies chemical or dust exposure at work. * Travel: No recent travel outside the [place]. * Lives independently. Review of Systems Review of Systems Constitutional: Denies fever, chills, weight loss, night sweats. Skin: Diffuse pruritic erythematous rash; burning and itching; no bullae/blisters reported. HEENT: Facial swelling; denies tongue swelling, throat tightness, visual changes, headache. Respiratory: Denies cough, wheeze, dyspnea, stridor. Cardiovascular: Denies chest pain, palpitations, syncope. GI: Denies abdominal pain, nausea, vomiting, diarrhea, melena, hematochezia. : Denies dysuria, hematuria, frequency, flank pain. MSK: Denies joint pain, arthralgias, myalgias. Neuro: Denies focal weakness, numbness, dizziness, confusion. Psych: Reports distress and sleep disturbance due to itching; no SI/HI. All other systems reviewed and negative except as noted above. Allergies: Coded Allergies: NO KNOWN ALLERGIES (Unverified , 04/15/25) Exam Vital Signs Vital Signs Date Time Temp Pulse Resp B/P (MAP) Pulse Ox O2 Delivery O2 Flow Rate FiO2 04/21/25 21:02 98.1 93 20 142/97 (112) 97 98.1 04/21/25 21:02 Room Air Exam General: Alert, oriented 3, mildly distressed due to itching, nontoxic appearing. Skin: * Diffuse maculopapular erythematous rash involving: * Bilateral dorsal forearms and arms * Bilateral thighs up to hips * Neck and bilateral cheeks/face * Some areas with purpuric/petechial-appearing lesions on forearms; other areas show diffuse erythema and swelling. * No vesicles, bullae, or pustules described. * Palms spared. No obvious mucosal erosions or target lesions described. HEENT: * Face: diffusely erythematous and swollen. * Lips: mildly edematous; no cyanosis. * Tongue: no visible swelling; patient denies sensation of tongue enlargement. * Oropharynx: moist, no exudates, no uvular deviation, no posterior oropharyngeal edema. * No stridor. Neck: Supple, no cervical lymphadenopathy, no JVD. Lungs: Clear to auscultation bilaterally, no wheezes, rales, or rhonchi. No use of accessory muscles. Cardiovascular: Regular rate and rhythm, no murmurs, rubs, or gallops. Abdomen: Soft, non-tender, non-distended; no guarding or rebound; normal bowel sounds. Extremities: Warm, well-perfused, no pitting edema. Rash as described above; no joint swelling. Neurologic: Grossly non-focal, moving all extremities spontaneously, no deficits reported. Psych: Cooperative, appropriate, anxious due to symptoms. Labs/Xrays Labs Test 04/21/25 21:30 04/21/25 13:26 Range/Units Urine Color Light-yellow Yellow Urine Clarity Turbid H Clear Urine pH 7.0 5.0-9.0 Urine Specific Grady 1.021 1.001-1.035 Urine Protein Negative Negative Urine Ketones Negative Negative Urine Blood Negative Negative /uL Urine Nitrite Negative Negative Urine Bilirubin Negative Negative Urine Urobilinogen Normal Negative mg/dL Urine Leukocyte Esterase 3+ Negative /uL Urine RBC 3 0 - 4 /hpf Urine Microscopic WBC 31 H 0-5 /HPF Urine Squamous Epithelial Cells Mod <5 /hpf Urine Bacteria Few H None Seen /hpf Urine Mucus Few None Seen Urine Glucose Normal Normal mg/dL Urine Test Negative Negative White Blood Count 19.0 H 4.4-10.8 10^3/uL Red Blood Count 6.21 H 4.0-5.20 10^6/uL Hemoglobin 15.9 12.2-16.2 g/dL Hematocrit 47.4 H 36.0-46.0 % Mean Corpuscular Volume 76.3 L 80.0-100.0 fL Mean Corpuscular Hemoglobin 25.5 L 28.0-32.0 pg Mean Corpuscular Hemoglobin Concent 33.4 32.0-36.0 g/dL Red Cell Distribution Width 13.2 11.8-14.3 % Platelet Count 293 140-450 10^3/uL Mean Platelet Volume 9.1 6.9-10.8 fL Neutrophils (%) (Auto) 67.5 37.0-80.0 % Lymphocytes (%) (Auto) 21.1 10.0-50.0 % Monocytes (%) (Auto) 6.5 0.0-12.0 % Eosinophils (%) (Auto) 4.6 0.0-7.0 % Basophils (%) (Auto) 0.3 0.0-2.0 % Neutrophils # (Auto) 12.8 H 1.6-8.6 10 ^3/uL Lymphocytes # (Auto) 4.0 0.4-5.4 10 ^3/uL Monocytes # (Auto) 1.2 0-1.3 10 ^3/uL Eosinophils # (Auto) 0.9 H 0-0.8 10 ^3/uL Basophils # (Auto) 0.1 0-0.2 10 ^3/uL Nucleated Red Blood Cells 0.1 % Sodium Level 138 136-145 mmol/L Potassium Level 3.4 L 3.5-5.1 mmol/L Chloride Level 101 98-107 mmol/L Carbon Dioxide Level 25 20-31 mmol/L Anion Gap 12 5-15 Blood Urea Nitrogen 8 L 9-23 mg/dL Creatinine 0.82 0.550-1.02 mg/dL Glomerular Filtration Rate Calc 90 >90 mL/min BUN/Creatinine Ratio 9.8 L 10.0-20.0 Serum Glucose 92 74-106 mg/dL Calcium Level 9.9 8.7-10.4 mg/dL SEPSIS Sepsis Screen Date sepsis recognized/suspect: Apr 21, 2025 Time Sepsis recognized/suspect: 2105 Recent Procedure: No On Antibiotic Therapy: No Respiratory Rate >20: No Heart Rate >90: Yes Temp<36 C (96.8 F) or >38.3 C: No SBP <90 or MAP <65 mmHG: Yes New Acute Mental Status Change: Yes Is the patient on CPAP, BIPAP,: Yes Physician Orders Admit (04/21/25 23:32) Code Status (04/21/25:) Vital Signs .PER UNIT PROTOCOL (04/21/25:) Review Orders With Adm. (04/21/25 23:) Notify Md Of Changes From Base (04/21/25 23:32) Advance Directive (04/21/25:32) Patient Condition (04/21/25:32) Allergies (04/21/25 23:32) Vital Signs Date Time Temp Pulse Resp B/P (MAP) Pulse Ox O2 Delivery O2 Flow Rate FiO2 04/21/25 21:02 98.1 93 20 142/97 (112) 97 98.1 04/21/25 21:02 93 20 97 Room Air Laboratory Tests Test 04/21/25 13:26 White Blood Count 19.0 10^3/uL (4.4-10.8) H Assessment/Plan Assessment/Plan Assessment Acute generalized allergic dermatitis / urticaria with facial angioedema Hypokalemia, likely glucocorticoid-associated (K 3.4 mmol/L) Steroid-associated leukocytosis with neutrophilia * WBC 8.4 - 15.3 -19.0 after initiation of steroids; afebrile, hemodynamically stable, normal ESR and lactic acid; no source of infection identified. Mild eosinophilia in setting of allergic process Supports allergic/hypersensitivity etiology. Pruritus associated with allergic dermatitis * Symptomatic contributor to distress and poor sleep. Treatment Plan 1. Acute generalized urticaria / allergic dermatitis with facial angioedema * Admit to [facility] / Med-Surg (NOT ICU) with q4h vitals and continuous pulse oximetry for the first 24 hours given facial swelling and recurrent ED visits. * Medications: * IV Methylprednisolone (e.g., 40 mg IV q812h) for acute control; transition to oral prednisone taper once improved (e.g., 40 mg PO daily 3 days, then 30 mg 2, 20 mg 2, 10 mg 2 adjust per attending). * H1 antihistamine (sedating, PRN): Diphenhydramine 2550 mg IV/PO q6h PRN for breakthrough itching (with fall precautions). * H2 avni: Continue Famotidine 20 mg IV/PO BID. * Topical therapy: Calamine lotion * Monitoring: * Airway monitoring: Watch for tongue swelling, stridor, worsening facial edema, new SOB. * Have IM Epinephrine PRN anaphylaxis (e.g., 0.3 mg IM thigh 1, repeat q5 15 min PRN) with * nursing protocol. * Diagnostics / Consults: * Repeat CBC with diff, CMP in the morning. * TSH to screen for associated autoimmune thyroid disease (chronic urticaria risk). * If purpuric/petechial lesions persist or worsen then Dermatology consult for evaluation of urticarial vasculitis vs. leukocytoclastic vasculitis and potential skin biopsy. * If recurrent or no improvement within 2448 hours then consider Allergy/Immunology consult for further evaluation and outpatient testing (RAST/skin-prick testing). * Patient Education: * Explain that the treatment goal is to decrease the redness, itching, and rash, step by step, to relieve her discomfort and allow the skin to calm down, and to monitor closely for any signs of airway involvement. 2. Hypokalemia likely steroid-related Plan: * Replete with KCl: * IV KCl 40 mEq IV * Monitor: * BMP in the morning and as needed until K? ? 3.84.0 mmol/L. * Avoid concurrent medications that lower potassium (e.g., high-dose loop diuretics) unless necessary. 3. Steroid-associated leukocytosis with neutrophilia (D72.829) Plan: * Recognize as likely glucocorticoid effect (WBC jump after steroids; no systemic signs of infection). * Rule out infection daily: monitor vitals, repeat labs if new symptoms arise, focused exam. * Avoid unnecessary antibiotics given lack of infectious source at present. * Reassess WBC trend as steroids are tapered. 4. Mild eosinophilia in setting of allergic process Plan: * Continue management of underlying allergic dermatitis as above. * Reassess eosinophil count on repeat CBC. * If significantly rising or associated with systemic symptoms (fever, organ involvement), broaden evaluation (IgE level, parasitic evaluation, autoimmune panel) Allergy/Immunology input. 6. Pruritus / Sleep disturbance secondary to rash Plan: * Symptom control: * Scheduled cetirizine 10 mg PO daily. * PRN diphenhydramine at night (with counseling on sedation). * Topical soothing agents (calamine, emollients). * Consider low-dose hydroxyzine 25 mg PO at bedtime if pruritus remains uncontrolled and not overly sedating, depending on attending preference. * Maintenance Painter Apprentice to avoid hot showers, harsh soaps, and scratching as much as possible. Prophylaxis & General Inpatient Measures 1. VTE Prophylaxis: * Enoxaparin 40 mg SQ daily plus early ambulation. 2. GI Prophylaxis: * Already on famotidine 20 mg BID, which also functions as stress-ulcer prophylaxis in the setting of systemic steroids. 3. Fall Precautions: * Especially with sedating meds (diphenhydramine, possible hydroxyzine). * Bed in low position, call light within reach, night lighting, assist with ambulation if drowsy. 4. Skin Care / Pressure Ulcer Prevention: * Encourage frequent repositioning, maintain skin moisturized, avoid irritant soaps, cotton/loose clothing. 5. Code Status: * Full Code. Case discussed in detail with the attending physician, including the clinical presentation, diagnostic workup, and comprehensive management plan. The patient was present for the discussion and demonstrated understanding of her condition and the proposed plan. Patient verbally consented to hospital admission and agreed to the outlined evaluation and treatment strategies, including imaging, labs, medication initiation, specialist consultations, and supportive care. Plan discussed with: Patient My Orders Orders - JUVENTINO SHEPHERD RESIDENT Procedure Category Date Status Time Admit ADMIT 04/21/25 Transmitted 23:32 Code Status CODE 04/21/25 Transmitted 23:32 Vital Signs [facility] 04/21/25 In Process 23:32 Review Orders With TIFFANIE 04/21/25 In Process Adm. 23:32 Notify Of Changes TIFFANIE 04/21/25 In Process From Base 23:32 Advance Directive TIFFANIE 04/21/25 In Process 23:32 Patient Condition ORDERS 04/21/25 Transmitted 23:32 Allergies [facility] 04/21/25 In Process 23:32 Date of Service: Apr 22, 2025 Billing Provider: SANTOS ALEXANDRE MD Common Visit Codes: 37938-[id number] INP/OBS CARE (HIGH) Secondary Visit Codes: 01030-[id number] CARE PLAN 30 MINUTES JUVENTINO SHEPHERD RESIDENT Apr 22, 2025 01:01
[2025-04-22] MEDS ORDERED: ONDANSETRON HCL 4 MG/2 ML VIAL IV PRN (01:15)
[2025-04-22] MEDS ORDERED: DOCUSATE SOD 100 MG CAP PO PRN (01:15)
[2025-04-22] MEDS ORDERED: ACETAMINOPHEN 325 MG TAB PO PRN (01:15)
[2025-04-22] MEDS: diphenhydrAMINE HCL 50 MG/1 ML VL IV PRN (01:42)
[2025-04-22] MEDS: POTASSIUM CHL 20MEQ/100ML 100 ML IV ONE (02:31)
[2025-04-22] MEDS: methylPREDNISolone SOD SUCC 40 MG/ML VL IV SCH (05:11)
[2025-04-22] MEDS: FUROSEMIDE INJECTION 0 ML ONE (06:33)
[2025-04-22 08:26] LABS: Hematocrit 42.0 % (36.0-46.0); Hemoglobin 13.7 g/dL (12.2-16.2); Mean Corpuscular Hemoglobin 25.0 pg (28.0-32.0); Mean Corpuscular Volume 76.7 fL (80.0-100.0); Nucleated Red Blood Cells % 0.1 %
[2025-04-22 08:43] LABS: Alanine Aminotransferase 14 U/L (7-40); Anion Gap 14 (5-15); BUN/Creatinine Ratio 12.8 (10.0-20.0); Blood Urea Nitrogen 10 mg/dL (9-23); Calcium 9.3 mg/dL (8.7-10.4); Carbon Dioxide 22 mmol/L (20-31); Chloride 104 mmol/L (98-107); Glucose 101 mg/dL (74-106); Potassium 4.4 mmol/L (3.5-5.1); Sodium 140 mmol/L (136-145); Total Protein 7.6 g/dL (5.7-8.2)
[2025-04-22 08:44] LABS: Albumin 4.6 g/dL (3.2-4.8); Bilirubin, Total 0.5 mg/dL (0.2-1.0)
[2025-04-22 08:49] LABS: Alkaline Phosphatase 36 U/L (46-116)
[2025-04-22] MEDS: FAMOTIDINE (10MG/ML) 2ML VL IV SCH (09:41)
[2025-04-22] MEDS: ENOXAPARIN SOD 40 MG/0.4 ML SYRINGE SC SCH (09:41)
[2025-04-22] MEDS: CALAMINE TOPical LOTION180 ML TOP PRN (10:41)
[2025-04-22] MEDS: MONTELUKAST SODIUM 10 MG TAB PO SCH (21:35)
[2025-04-23 10:26] LABS: Follicle Stimulating Hormone 4.41 IU/L (SEE BELOW)
[2025-04-23 10:28] LABS: Free T4 (Free Thyroxine) 1.32 ng/dL (0.89-1.76)
== END 2025-04-22 23:14 | disposition left against medical advice (07) | DRG 385 ==
LOC: ER 10:00 → OVERFLOW 23:32 → WEST WING 04-22 04:35
PROVIDERS: ATTEND Emergency Medicine
DX: L23.9 Allergic contact dermatitis, unspecified cause (principal); D72.10 Eosinophilia, unspecified; T78.3XXA Angioneurotic edema, initial encounter; E87.6 Hypokalemia; Z53.29 Procedure and treatment not carried out because of patient's decision for other reasons; T38.0X5A Adverse effect of glucocorticoids and synthetic analogues, initial encounter; Y92.89 Other specified places as the place of occurrence of the external cause
CPT/HCPCS: 36415; 80048; 80053; 81001; 81025; 82607; 82746; 83001; 83615; 84439; 84443; 85025; 87081; 96361; 96374; 96375; G0378; J3480; J3490